=== PATIENT | female | born 1965 | race Caucasian/White ===

== ENCOUNTER 2016-06-20 20:00 | Observation (INO) | payer MEDICARE, MEDICAID ==
[~2016-06-20] VITALS: Ht 162.6 cm; Wt 75.2 kg
[2016-06-20] MEDS ORDERED: ASPIRIN 81 MG CHEW TAB ONE (20:53)
[2016-06-20] MEDS ORDERED: NITROGLYCERIN SL 0.4 MG TAB SL ONE (21:12)
[2016-06-20] MEDS ORDERED: NITROGLYCERIN 2% OINT 1 INCH PKT TOPICAL ONE (21:22)
[2016-06-20] MEDS ORDERED: ENOXAPARIN 80 MG/0.8 ML SYR SUBQ ONE (21:38)
[2016-06-20 23:26] VITALS: BP_SYST 134; BP_SYST 144; RESP 20; TEMP 98.1
[2016-06-20 23:27] VITALS: Ht 162.6 cm; Wt 75.2 kg
[2016-06-21 00:20] VITALS: RESP 20
[2016-06-21 03:11] VITALS: BP_SYST 97; RESP 18; TEMP 97.5
[2016-06-21] MEDS ORDERED: NITROGLYCERIN SL 0.4 MG TAB SL PRN (03:25)
[2016-06-21] MEDS ORDERED: ONDANSETRON 4 MG VIAL IV PRN (03:25)
[2016-06-21] MEDS ORDERED: SALINE FLUSH 10 ML FLUSH PRN (03:25)
[2016-06-21] MEDS ORDERED: TEMAZEPAM 15 MG CAP PO PRN (03:25)
[2016-06-21] MEDS ORDERED: DOCUSATE SOD 100 MG CAP PO PRN (03:25)
[2016-06-21] MEDS ORDERED: NITROGLYCERIN 50 MG/250 ML IV PRN (03:25)
[2016-06-21] MEDS ORDERED: SODIUM CHLORIDE 0.9% 1,000 ML IV SCH (03:25)
[2016-06-21] MEDS ORDERED: MORPHINE 2 MG/ML SYR IV PRN (03:25)
[2016-06-21] MEDS ORDERED: SODIUM CHLORIDE 0.9% FLUSH BAG 500 ML IV PRN (03:25)
[2016-06-21] MEDS ORDERED: ACETAMINOPHEN 325 MG TAB PO PRN (03:25)
[2016-06-21] MEDS ORDERED: LORAZEPAM 0.5 MG TAB PO PRN (03:25)
[2016-06-21] MEDS ORDERED: TRAMADOL 50 MG TAB PO PRN (03:25)
[2016-06-21] MEDS ORDERED: ASPIRIN EC 81 MG TAB PO SCH (08:00)
[2016-06-21] MEDS ORDERED: SALINE FLUSH 10 ML FLUSH SCH (08:00)
[2016-06-21 09:00] VITALS: BP_SYST 116; RESP 16; TEMP 97.5
[2016-06-21] MEDS ORDERED: OLMESARTAN 20 MG TAB PO SCH (09:15)
[2016-06-21] MEDS ORDERED: LEVOTHYROXINE 0.15 MG TAB PO SCH (09:19)
[2016-06-21 12:01] VITALS: BP_SYST 127; RESP 16; TEMP 97.5
[2016-06-21 15:47] VITALS: BP_SYST 127; RESP 16; TEMP 97.5
[2016-06-21 16:07] VITALS: BP_SYST 127; RESP 16; TEMP 97.5
[2016-06-21] MEDS ORDERED: Atorvastatin 20 MG TAB PO SCH (21:00)
== END 2016-06-21 16:16 | disposition home or self-care (01) ==
LOC: ENRESERVTM → ENRESERVDT → ER 20:00 → EMR 21:54 → ENPENDDIS 21:54 → PCU 22:49 → PCU2 06-21 11:09
PROVIDERS: ADMIT Internal Medicine Cardiovascular Disease; ATTEND Internal Medicine Cardiovascular Disease
DX: R07.89 Other chest pain (principal); I10 Essential (primary) hypertension; E78.5 Hyperlipidemia, unspecified; F17.210 Nicotine dependence, cigarettes, uncomplicated
CPT/HCPCS: 36415; 71010; 80053; 80061; 82550; 82553; 83735; 84484; 85025; 85610; 85730; 93005; 96372; 99285; G0378; 94799